=== PATIENT | female | born 1960 | race Caucasian/White ===

== ENCOUNTER 2018-12-26 12:45 | Emergency (ER) | payer MEDICARE ==
[~2018-12-26] VITALS: Ht 165.1 cm; Wt 81.8 kg
[2018-12-26 12:56] VITALS: Ht 165.1 cm; Wt 81.8 kg
[2018-12-26] MEDS ORDERED: VOLTAREN75 MG PO (16:44)
[2018-12-26] MEDS ORDERED: BACLOFEN20 M1 PO (16:44)
[2018-12-26 16:59] VITALS: BP 167/84
== END 2018-12-26 17:01 | disposition home or self-care (01) ==
LOC: D.ER 12:45
DX: S16.1XXA Strain of muscle, fascia and tendon at neck level, initial encounter (principal); V43.52XA Car driver injured in collision with other type car in traffic accident, initial encounter; Y93.89 Activity, other specified; Y92.410 Unspecified street and highway as the place of occurrence of the external cause; Z86.73 Personal history of transient ischemic attack (TIA), and cerebral infarction without residual deficits; F17.200 Nicotine dependence, unspecified, uncomplicated

== ENCOUNTER 2021-03-08 13:45 | Outpatient (CLI) | payer MEDICARE ==
[~2021-03-08 13:45] MED LIST: BACLOFEN20 M1 PO; VOLTAREN75 MG PO
== END 2021-03-08 23:59 | disposition home or self-care (01) ==
LOC: D.MAMMO 13:45
PROVIDERS: ATTEND Emergency Medicine
DX: Z12.31 Encounter for screening mammogram for malignant neoplasm of breast (principal)